=== PATIENT | female | born 1935 | race Caucasian/White ===

== ENCOUNTER 2016-06-15 02:31 | Inpatient (IN) | payer OTHER ==
[~2016-06-15] VITALS: Ht 160 cm; Wt 79.1 kg
[~2016-06-15 02:31] MED LIST: ASPIR 8181 M1 PO; ASPIRIN325 MG PO; Bactrim,Septra Singl PO; COREG12.5 M1 PO; CRESTOR5 MG PO; Coreg PO; HYZAAR 100-21 TABLET PO; IMDUR30 MG PO; LANSOPRAZOLE30 MG PO; LASIX20 MG PO; LASIX40 MG PO; LOSARTAN-HCTZ1 EACH PO; METFORMIN HCL500 MG PO; MULTIPLE VITAM1 EAC4 PO; Micro-K,K-Tab,K-Dur, PO; OCUVITE TABLET1 EACH PO; PLAVIX75 MG PO; POTASSIUM-9999 MG PO; PRAVACHOL10 MG PO; SYNTHROID75 MCG PO; TOPROL XL100 MG PO; TRAMADOL HCL50 MG PO; VITAMIN D400 UNI1 PO; Xanax PO; [UNRECOGNIZED DRUG - CODE] PO
[2016-06-15 03:35] LABS: EOSINOPHIL (%) 0.8 % (0-5); EOSINOPHIL COUNT 0.1 K/uL (0-0.3); HEMATOCRIT 38.7 % (36.0-46.0); IMMATURE GRANULOCYTE (%) 0.2 % (0.0-0.7); IMMATURE GRANULOCYTE COUNT 0.2 K/uL; LYMPHOCYTE COUNT 1.5 K/uL (1.0-2.8); MCHC 32.6 G/DL (30.0-36.0); MEAN PLAT.VOLUME 10.7 uM^3 (9.5-12.4); MONOCYTE COUNT 0.8 K/uL (0-0.8); NEUTROPHIL COUNT 7.8 K/uL (1.8-6.4); PLATELET COUNT 293 K/uL (156-360); RBC DIS.WIDTH-CV 14.2 % (11.8-14.6); RBC DIS.WIDTH-SD 43.8 % (39-53); WHITE BLOOD COUNT 10.3 K/uL (4.1-10.2)
[2016-06-15 03:47] LABS: CHLORIDE 98 mEq/L (99-109); POTASSIUM 3.5 mEq/L (3.7-5.4); SODIUM 138 mEq/L (136-147)
[2016-06-15 03:50] LABS: GLUCOSE 170 mg/dL (70-99)
[2016-06-15 03:51] LABS: ANION GAP 15 MEQ/L (2-14)
[2016-06-15 03:52] LABS: INTER. NORMALIZED RATIO 1.1; PROTHROMBIN TIME 11.1 (9.2-11.2); TOTAL BILIRUBIN 0.8 mg/dL (0.0-1.0)
[2016-06-15 03:53] LABS: ALKALINE PHOSPHATASE 72 IU/L (3-129)
[2016-06-15 03:54] LABS: GFR ESTIMATE (CALCULATED) 51 mL/min/
[2016-06-15 03:55] LABS: DIRECT BILIRUBIN 0.2 mg/dL (0.0-0.3); UREA NITROGEN (BUN) 27 mg/dL (9-23)
[2016-06-15 03:57] LABS: LIPASE 22 U/L (1.0-51.0)
[2016-06-15 03:59] LABS: TROP-I INTERPRETATION NEGATIVE; TROPONIN-I < 0.01 ng/mL (0.0-0.30)
[2016-06-15 08:23] LABS: HEMATOCRIT 36.8 % (36.0-46.0)
[2016-06-15 12:00] VITALS: BP 107/53
[2016-06-15 13:44] LABS: HEMATOCRIT 35.2 % (36.0-46.0); MCV 86.7 FL (83-99)
[2016-06-15 16:02] VITALS: BP 133/63
[2016-06-15 16:04] VITALS: BP 133/63
[2016-06-15 19:32] VITALS: BP 122/59
[2016-06-15 20:12] LABS: HEMATOCRIT 36.2 % (36.0-46.0); MCV 87.9 FL (83-99)
[2016-06-15 21:16] LABS: POINT-OF-CARE USER ID 603211116
[2016-06-15 23:48] VITALS: BP 120/71
[2016-06-16 04:00] VITALS: BP 121/70
[2016-06-16 06:49] LABS: HEMATOCRIT 35.1 % (36.0-46.0); MCH 28.4 PG (29.0-34.0); MCHC 31.9 G/DL (30.0-36.0); MCV 88.9 FL (83-99); PLATELET COUNT 236 K/uL (156-360); RBC DIS.WIDTH-CV 14.8 % (11.8-14.6); RBC DIS.WIDTH-SD 48.1 % (39-53); RED BLOOD COUNT 3.95 M/uL (3.80-5.20); WHITE BLOOD COUNT 8.9 K/uL (4.1-10.2)
[2016-06-16 08:35] VITALS: BP 117/54
[2016-06-16 12:04] LABS: HEMATOCRIT 32.1 % (36.0-46.0); MCH 28.2 PG (29.0-34.0); MCHC 31.8 G/DL (30.0-36.0); MCV 88.7 FL (83-99); MEAN PLAT.VOLUME 10.6 uM^3 (9.5-12.4); PLATELET COUNT 221 K/uL (156-360); RBC DIS.WIDTH-CV 14.7 % (11.8-14.6); RBC DIS.WIDTH-SD 48.3 % (39-53); RED BLOOD COUNT 3.62 M/uL (3.80-5.20); WHITE BLOOD COUNT 9.2 K/uL (4.1-10.2)
[2016-06-16 12:08] VITALS: BP 110/52
[2016-06-16 12:29] LABS: ANION GAP 7 MEQ/L (2-14); CHLORIDE 105 MEQ/L (99-109); GFR ESTIMATE (CALCULATED) > 59 mL/min/; GLUCOSE 126 mg/dL (70-99); SAMPLE HEMOLYSIS CHECK 0; SAMPLE ICTERIC CHECK 0; SAMPLE LIPEMIA CHECK 0; SODIUM 138 MEQ/L (136-147); UREA NITROGEN (BUN) 11 mg/dL (9-23)
[2016-06-16 16:48] VITALS: BP 109/58
[2016-06-16 20:31] VITALS: BP 113/53
[2016-06-16 23:48] VITALS: BP 118/61
[2016-06-17 05:02] VITALS: BP 118/68
[2016-06-17 07:45] VITALS: BP 139/66
[2016-06-17 11:30] VITALS: BP 126/80; BP 138/68
[2016-06-17 15:00] VITALS: BP 140/64
[2016-06-17 16:53] LABS: POINT-OF-CARE METER ID UU14174225
[2016-06-17 18:47] LABS: Estimated Average Glucose 160 mg/dL (70-123); HEMOGLOBIN A1c (GLYCOHEMOGLOB) 7.2 % HGB (Below 5.7)
[2016-06-17 19:55] VITALS: BP 166/76
[2016-06-17 23:42] VITALS: BP 117/56
[2016-06-18 00:01] LABS: POINT-OF-CARE METER ID UU14174225
[2016-06-18 08:00] VITALS: BP 143/72
[2016-06-18 12:39] VITALS: BP 154/64
[2016-06-18] MEDS ORDERED: DICYCLOMINE HCL10 MG PO (12:56)
[2016-06-18] MEDS ORDERED: FLAGYL500 MG PO (12:56)
[2016-06-18 14:00] VITALS: BP 132/78
== END 2016-06-18 14:45 | disposition home or self-care (01) | DRG 379 ==
LOC: EME 02:31 → EDOF 07:18 → 5SOUTH 15:54
PROVIDERS: Emergency Medicine; Internal Medicine; Nurse Practitioner Adult Health
DX: K57.33 Diverticulitis of large intestine without perforation or abscess with bleeding (principal); E87.6 Hypokalemia; K52.9 Noninfective gastroenteritis and colitis, unspecified; R10.9 Unspecified abdominal pain; K59.00 Constipation, unspecified; I25.10 Atherosclerotic heart disease of native coronary artery without angina pectoris; Z95.1 Presence of aortocoronary bypass graft; E11.9 Type 2 diabetes mellitus without complications; I10 Essential (primary) hypertension; E78.5 Hyperlipidemia, unspecified; B91 Sequelae of poliomyelitis; M62.81 Muscle weakness (generalized); R20.0 Anesthesia of skin; Z87.891 Personal history of nicotine dependence
CPT/HCPCS: 71010; 74176; 80048; 80076; 81003; 82948; 83036; 83605; 83690; 84484; 85014; 85018; 85025; 85027; 85610; 85730; 86850; 86900; 86901; 87040; 87506; 99281; 99285; C9113; J0696; J0744; J2405; J3480; J7030; J7050; S0030

== ENCOUNTER 2017-03-25 06:37 | Emergency (ER) | payer OTHER ==
[~2017-03-25] VITALS: Ht 160 cm; Wt 79.5 kg
[~2017-03-25 06:37] MED LIST changes: +DICYCLOMINE HCL10 MG PO; +FLAGYL500 MG PO
[2017-03-25] MEDS ORDERED: FLEXERIL10 MG PO (08:37)
[2017-03-25] MEDS ORDERED: NAPROSYN500 MG PO (08:37)
[2017-03-25] MEDS ORDERED: LIDODERM 5% P1 PATCH TD (08:37)
[2017-03-25 09:22] VITALS: BP 163/79
== END 2017-03-25 09:23 | disposition home or self-care (01) ==
LOC: EME 06:37
DX: S39.012A Strain of muscle, fascia and tendon of lower back, initial encounter (principal); M62.830 Muscle spasm of back; I10 Essential (primary) hypertension; X50.9XXA Other and unspecified overexertion or strenuous movements or postures, initial encounter; M41.9 Scoliosis, unspecified; Z86.12 Personal history of poliomyelitis; Z88.8 Allergy status to other drugs, medicaments and biological substances
CPT/HCPCS: 93005; 99281; 99284; J1885

== ENCOUNTER → 2017-05-16 | Outpatient (CLI) | payer OTHER ==
[~2017-05-16] MED LIST changes: +FLEXERIL10 MG PO; +LIDODERM 5% P1 PATCH TD; +NAPROSYN500 MG PO
== END | disposition home or self-care (01) ==
LOC: NUC 08:06
DX: R11.0 Nausea (principal); E11.9 Type 2 diabetes mellitus without complications
CPT/HCPCS: 78264; A9541